=== PATIENT | male | born 1955 | race Caucasian/White ===

== ENCOUNTER 2023-06-25 06:10 | Day surgery (SDC) | payer OTHER, SELFPAY ==
[2023-06-25 06:40] VITALS: BMI 28.9
[2023-06-25 06:55] VITALS: BMI 28.9
[2023-06-25 07:00] VITALS: BP 121/70
[2023-06-25 07:10] LABS: Glucose - Point of Care 108 mg/dl (70-99)
[2023-06-25 09:33] VITALS: BP 106/75
[2023-06-25 09:45] VITALS: BP 131/77
[2023-06-25 10:00] VITALS: BP 141/77
== END 2023-06-25 10:10 | disposition home or self-care (01) ==
LOC: GI 06:10
PROVIDERS: ATTENDING PHYSICIAN Internal Medicine Gastroenterology
DX: D12.0 Benign neoplasm of cecum (principal); D12.2 Benign neoplasm of ascending colon; Q43.8 Other specified congenital malformations of intestine; K64.0 First degree hemorrhoids; Z79.02 Long term (current) use of antithrombotics/antiplatelets
CPT/HCPCS: 45390; 45385; 88305; 82962

== ENCOUNTER → 2023-07-08 11:29 | Outpatient (REF) | payer OTHER, SELFPAY | LOC: MRI 3T 11:29 | PROVIDERS: ATTENDING PHYSICIAN Surgery; FAMILY PHYSICIAN Family Medicine | DX: R97.20 Elevated prostate specific antigen [PSA] (principal) | CPT/HCPCS: 72197; A9575 ==

== ENCOUNTER → 2024-05-20 08:07 | Outpatient (REF) | payer OTHER, SELFPAY | LOC: RCS 08:07 | PROVIDERS: ATTENDING PHYSICIAN Student in an Organized Health Care Education/Training Program; FAMILY PHYSICIAN Family Medicine | DX: I51.89 Other ill-defined heart diseases (principal); I25.2 Old myocardial infarction | CPT/HCPCS: 93306 ==

== ENCOUNTER → 2024-05-26 07:32 | Outpatient (REF) | payer OTHER, SELFPAY | LOC: RAD 07:32 | PROVIDERS: ATTENDING PHYSICIAN Family Medicine | DX: M25.552 Pain in left hip (principal); Z68.31 Body mass index [BMI] 31.0-31.9, adult | CPT/HCPCS: 73502 ==

== ENCOUNTER → 2024-09-05 07:25 | Outpatient (REF) | payer OTHER, SELFPAY | LOC: RAD 07:25 | PROVIDERS: ATTENDING PHYSICIAN Family Medicine | DX: R09.02 Hypoxemia (principal) | CPT/HCPCS: 71046 ==